=== PATIENT | female | born 1935 | race Caucasian/White ===

== ENCOUNTER 2017-01-08 20:12 | Emergency (ER) | payer MEDICARE ==
[2015-12-04 10:52] VITALS: BMI 25.6
[~2017-01-08 20:12] MED LIST: CALCIUM PO; COUMADIN6 MG PO; FOLIC ACID PO; HCTZ25 MG PO; K-DUR20 MEQ PO; MAGNESIUM PO; METOPROLOL TART50 MG PO; NORVASC10 MG PO; POTASSIUM PO; SYNTHROID25 MCG PO; THIAMINE HCL50 MG PO; TOPROL XL50 MG PO; VITAMIN B-12 PO; VITAMIN D3 PO; WARFARIN PO; ZOCOR20 MG PO
[2017-01-08 20:58] LABS: BASOPHILS 0.4 % (0-2); EOSINOPHILS 1.2 % (0-7); HEMATOCRIT 36.5 % (36.0-48.0); HEMOGLOBIN 12.2 g/dL (12-16); IMMATURE GRANULOCYTES 0.2 % (0-5); LYMPHOCYTES 11.9 % (15-50); MCH 30.8 pg (26.0-34.0); MCHC 33.4 g/dL (31.0-37.0); MCV 92.2 fL (80.0-100.0); MEAN PLATELET VOLUME 10.1 fL (7.4-10.4); MONOCYTES 15.1 % (2-11); NEUTROPHILS 71.2 % (40-80); RBC 3.96 10x6/uL (4.00-5.40); RDW 13.6 % (11.5-14.5); WBC 5.7 10x3/uL (4.8-10.8)
[2017-01-08 21:03] LABS: PLATELET COUNT 163 10x3/uL (130-400)
[2017-01-08 21:12] LABS: APPEARANCE SLT CLOUDY (CLEAR); BILIRUBIN NEGATIVE (NEGATIVE); COLOR YELLOW (YELLOW); GLUCOSE NEGATIVE (NEGATIVE); KETONE NEGATIVE (NEGATIVE); LEUKOCYTE ESTERASE 1+ (NEGATIVE); NITRITE NEGATIVE (NEGATIVE); PROTEIN NEGATIVE (NEGATIVE); UROBILINOGEN NORMAL (NORMAL)
[2017-01-08 21:13] LABS: ALBUMIN 3.8 g/dL (3.4-5.0); ANION GAP 7.8 mmol/L (8-16); BILIRUBIN - TOTAL 0.37 mg/dL (0.2-1.3); CALCIUM 9.2 mg/dL (8.5-10.1); CARBON DIOXIDE 29.5 mmol/L (21.0-32.0); POTASSIUM - SERUM 3.3 mmol/L (3.5-5.1); PROTEIN - SERUM 7.8 g/dL (6.4-8.2)
[2017-01-08 21:15] LABS: WHITE CELLS - URINE OCC /hpf (0-5)
== END 2017-01-09 00:24 | disposition home or self-care (01) ==
LOC: D.ER 20:12
PROVIDERS: Emergency Medicine
DX: R10.9 Unspecified abdominal pain (principal)

== ENCOUNTER 2020-02-09 13:09 | Inpatient (IN) | payer OTHER ==
[~2020-02-09] VITALS: Ht 147.3 cm; Wt 42.3 kg
[2020-02-09 14:29] VITALS: BP 106/75
[2020-02-09 14:41] LABS: HEMATOCRIT 37.8 % (36.0-48.0); HEMOGLOBIN 12.8 g/dL (12-16); MCH 26.8 pg (26.0-34.0); MCHC 33.9 g/dL (31.0-37.0); MCV 79.2 fL (80.0-100.0); MEAN PLATELET VOLUME 9.7 fL (7.4-10.4); PLATELET COUNT 553 10x3/uL (130-400); RBC 4.77 10x6/uL (4.00-5.40); WBC 28.7 10x3/uL (4.8-10.8)
[2020-02-09 14:49] LABS: APTT 89.7 SECONDS (22.8-39.4)
[2020-02-09 14:55] LABS: INR 5.49 (0.85-1.17); PROTIME 48.8 SECONDS (11.6-15.0)
[2020-02-09 15:05] LABS: ALBUMIN 2.1 g/dL (3.4-5.0); ALKALINE PHOSPHATASE 137 U/L (30-120); ALT (SGPT) 27 U/L (10-68); AMYLASE - SERUM 41 U/L (25-115); BILIRUBIN - TOTAL 0.55 mg/dL (0.2-1.3); CALC OSMOLALITY 262 mosm/kg (275-300); CALCIUM 9.1 mg/dL (8.5-10.1); CARBON DIOXIDE 22.3 mmol/L (21.0-32.0); CKMB 1.4 U/L (0.0-3.6); CREATINE KINASE 30 UL (21-215); CREATININE - SERUM 1.7 mg/dL (0.6-1.3); GLUCOSE 98 mg/dL (74-106); LIPASE 83 U/L (73-393); POTASSIUM - SERUM 4.4 mmol/L (3.5-5.1); PROTEIN - SERUM 7.7 g/dL (6.4-8.2); SODIUM 123 mmol/L (136-145); THYROID STIMULATING HORMONE 3.21 uIU/mL (0.36-3.74); UREA NITROGEN 54 mg/dL (7-18); eGFR NON AFRICAN AMERICAN 30 mL/min (90-120)
[2020-02-09 15:12] LABS: TROPONIN-I < 0.017 ng/mL (0.000-0.060)
[2020-02-09 15:14] LABS: CHLORIDE - SERUM 85 mmol/L (98-107)
[2020-02-09 15:24] LABS: LYMPHOCYTES 3 % (15-50); MONOCYTES 2 % (2-11); NEUTROPHILS 94 % (40-80); PLATELET ESTIMATE INCREASED
[2020-02-09 15:42] LABS: BILIRUBIN NEGATIVE (NEGATIVE); KETONE NEGATIVE (NEGATIVE); NITRITE NEGATIVE (NEGATIVE); UROBILINOGEN NORMAL (NORMAL)
[2020-02-09 15:43] LABS: AMORPHOUS SEDIMENT <1+ /lpf (NONE SEEN); BACTERIA MANY /hpf (NONE SEEN); EPITHELIAL CELLS NSEEN /hpf (0-5)
[2020-02-09 17:55] VITALS: BP 93/57
--- NOTE | 2020-02-09 18:15 | NUR ---
REPORT CALLED TO LEODAN STARR LPN
--- NOTE | 2020-02-09 19:50 | NUR ---
PATIENT ARRIVED TO FLOOR VIA STRETCHER. TRANSFERED TO BED. ASSESSMENT PERFORMED.
[2020-02-09 20:12] VITALS: BP 97/68; BMI 19.4
[2020-02-09 21:03] VITALS: Ht 147.3 cm; Wt 42.3 kg
[2020-02-10] VITALS: BP 95/61
--- NOTE | 2020-02-10 03:38 | NUR ---
UNABLE TO SLEEP THIS PM BUT REMAINS CALM. DENIES NEEDS. CALL LIGHT REMAINS CLOSE. CPOC.
[2020-02-10 04:00] VITALS: BP 96/59
[2020-02-10 07:19] LABS: ALBUMIN 1.6 g/dL (3.4-5.0); ANION GAP 13.8 mmol/L (8-16); BILIRUBIN - TOTAL 0.35 mg/dL (0.2-1.3); CARBON DIOXIDE 23.6 mmol/L (21.0-32.0)
[2020-02-10 07:20] LABS: CREATININE - SERUM 1.2 mg/dL (0.6-1.3); POTASSIUM - SERUM 3.4 mmol/L (3.5-5.1)
[2020-02-10 07:21] LABS: BASOPHILS 0.1 % (0-2); EOSINOPHILS 0.1 % (0-7); HEMATOCRIT 34.6 % (36.0-48.0); HEMOGLOBIN 11.3 g/dL (12-16); IMMATURE GRANULOCYTES 0.8 % (0-5); LYMPHOCYTES 2.4 % (15-50); MCHC 32.7 g/dL (31.0-37.0); MCV 79.7 fL (80.0-100.0); MEAN PLATELET VOLUME 9.3 fL (7.4-10.4); MONOCYTES 2.7 % (2-11); NEUTROPHILS 93.9 % (40-80); RBC 4.34 10x6/uL (4.00-5.40)
[2020-02-10 07:25] LABS: PLATELET COUNT 439 10x3/uL (130-400); WBC 19.9 10x3/uL (4.8-10.8)
--- NOTE | 2020-02-10 08:45 | NUR ---
RESTING IN BED, NO DISTRESS NOTED, C/O WEAKNESS, IV INFUSING, CONT TO MONITOR NPO
[2020-02-10 09:53] VITALS: BP 107/66
--- NOTE | 2020-02-10 12:18 | NUR ---
PT INCONT URINE, CONT TO MONITOR, REMAINS NPO
[2020-02-10 12:45] VITALS: BP 89/59
[2020-02-10 16:37] VITALS: BP 91/64
--- NOTE | 2020-02-10 18:00 | NUR ---
REMAINS NPO, NO C/O PAIN THIS SHIFT, CONT TO MONITOR
--- NOTE | 2020-02-10 21:00 | NUR ---
RESTING QUIETLY WITH NO COMPLALITNS VOICED. RELIEF WITH PAIN MED. IV TO RFA INTACT WITHOUT REDNESS OR EDEMA NOTED. CL IN REACH
[2020-02-10 23:03] VITALS: BP 116/66
--- NOTE | 2020-02-11 02:18 | NUR ---
I have reviewed this patient and I concur with the Shift Assessment completed by the Licensed Practical Nurse today this shift.
[2020-02-11 02:35] VITALS: BP 112/71
[2020-02-11 04:50] LABS: HEMATOCRIT 31.3 % (36.0-48.0); HEMOGLOBIN 10.3 g/dL (12-16); MCH 26.2 pg (26.0-34.0); MCHC 32.9 g/dL (31.0-37.0); MCV 79.6 fL (80.0-100.0); MEAN PLATELET VOLUME 9.2 fL (7.4-10.4); PLATELET COUNT 576 10x3/uL (130-400); RBC 3.93 10x6/uL (4.00-5.40); RDW 16.1 % (11.5-14.5); WBC 23.7 10x3/uL (4.8-10.8)
[2020-02-11 05:08] LABS: LYMPHOCYTES 2 % (15-50); MONOCYTES 2 % (2-11); NEUTROPHILS 96 % (40-80); PLATELET ESTIMATE INCREASED
[2020-02-11 05:26] LABS: ALBUMIN 1.7 g/dL (3.4-5.0); ANION GAP 16.3 mmol/L (8-16); BILIRUBIN - TOTAL 0.46 mg/dL (0.2-1.3); CALCIUM 8.2 mg/dL (8.5-10.1); CARBON DIOXIDE 20.7 mmol/L (21.0-32.0); CREATININE - SERUM 1.1 mg/dL (0.6-1.3); PROTEIN - SERUM 6.2 g/dL (6.4-8.2)
[2020-02-11 07:13] VITALS: BP 105/74
[2020-02-11 09:31] VITALS: BP 113/77
[2020-02-11 12:34] VITALS: BP 105/71
--- NOTE | 2020-02-11 13:41 | MORECARE ---
CASE MANAGEMENT DISCHARGE SUMMARY PATIENT: XOCHITL ANGEL UNIT: [id number] ADM DATE: 02/09/20 AGE: 85 : 36 SEX: F ROOM/BED: D.2206 AUTHOR: COTY RUIZ PHYSICIAN: REFERRING PHYSICIAN: SAMIRA SMALLS MD DATE OF SERVICE: 02/11/20 Discharge Plan Patient Name: XOCHITL ANGEL Facility: [facility]:[place] : 1935 Planned Disposition: Anticipated Discharge Date: Discharge Date: Expected LOS: Initial Reviewer: [email or web address] Initial Review Date: 02/09/2020 Generated: 02/11/20 2:41 pm Comments DCP- Discharge Planning Updated by [email or web address]: Siria Lee on 02/11/20 12:[address] TRANSFER HAS STARTED TO GET PATIENT TO [facility] FOR HIGHER LEVEL OF CARE. I HAVE SPOKE TO SILVINO LACKEY. I SPOKE JOAN AWAD AT [facility] AND HAVE FAXED CLINICAL TO [phone] External Providers External Provider: [facility] Next Contact Date: Service Request Date: Service Type: Resolution: Reviewer: Comments: Patient Name: XOCHITL ANGEL Page [id number] at 1341 All edits/amendments must be made on the electronic document DICTATION DATE: 02/11/20 1341 LIEUTENANT COLONEL: JOEL 02/11/20 1341 RPT#: [id number] DC DATE: STATUS: ADM IN [place] [id number] [place] [address] END OF REPORT
[2020-02-11 14:34] LABS: INR 4.85 (0.85-1.17); PROTIME 44.3 SECONDS (11.6-15.0)
--- NOTE | 2020-02-11 14:53 | MORECARE ---
CASE MANAGEMENT DISCHARGE SUMMARY PATIENT: XOCHITL ANGEL UNIT: [id number] ADM DATE: 02/09/20 AGE: 85 : 36 SEX: F ROOM/BED: D.2206 AUTHOR: COTY RUIZ PHYSICIAN: REFERRING PHYSICIAN: SAMIRA TSE MD DATE OF SERVICE: 02/11/20 Discharge Plan Patient Name: XOCHITL ANGEL Facility: [facility]:[place] : 1935 Planned Disposition: Anticipated Discharge Date: Discharge Date: Expected LOS: Initial Reviewer: [email or web address] Initial Review Date: 02/09/2020 Generated: 02/11/20 3:53 pm Comments DCP- Discharge Planning Updated by [email or web address]: Sriia Lee on 02/11/20 1:[address] phone called received by dr tse and he has an accepting doctor and Dr Reyes at [facility] DCP- Discharge Planning Updated by [email or web address]: Siria Lee on 02/11/20 12:[address] TRANSFER HAS STARTED TO GET PATIENT TO [facility] FOR HIGHER LEVEL OF CARE. I HAVE SPOKE TO SILVINO LACKEY. I SPOKE JOAN AWAD AT [facility] AND HAVE FAXED CLINICAL TO [phone] Last DP export: 02/11/20 12:41 p Patient Name: XOCHITL ANGEL Page [id number] at 1453 All edits/amendments must be made on the electronic document DICTATION DATE: 02/11/20 1453 INSTRUCTIONAL SERVICES LIBRARIAN: JOEL 02/11/20 1453 RPT#: [id number] DC DATE: STATUS: ADM IN [facility] [address] [place] [address] END OF REPORT
[2020-02-11 17:59] VITALS: BP 108/68
[2020-02-11 20:00] VITALS: BP 98/63
--- NOTE | 2020-02-11 21:00 | NUR ---
A&O X 4. REPORTS ABDOMINAL SORENESS AND HEARTBURN/INDEGESTION. LORIN PAGED. CALLED ON ROOM PHONE PER REQUEST AND ICE CHIPS GIVEN, CTM.
--- NOTE | 2020-02-12 00:45 | NUR ---
RECEIVED CALL FROM [facility]ER C[facility], COVID 19 TEST NEEDED FOR TRANSFER. NONE IN CHART AND NOTED NOTED BY LAB. ORDERS ENTERED, PT INFORMED. WILL PASS IN REPORT. [facility] NOTIFIED OF DELAY.
[2020-02-12 04:00] VITALS: BP 100/58
[2020-02-12 07:06] LABS: BASOPHILS 0.1 % (0-2); EOSINOPHILS 0 % (0-7); HEMATOCRIT 26.8 % (36.0-48.0); HEMOGLOBIN 8.9 g/dL (12-16); IMMATURE GRANULOCYTES 2.2 % (0-5); LYMPHOCYTES 3.4 % (15-50); MCH 26.3 pg (26.0-34.0); MCHC 33.2 g/dL (31.0-37.0); MCV 79.3 fL (80.0-100.0); MEAN PLATELET VOLUME 8.7 fL (7.4-10.4); MONOCYTES 3.4 % (2-11); NEUTROPHILS 90.9 % (40-80); PLATELET COUNT 456 10x3/uL (130-400); RBC 3.38 10x6/uL (4.00-5.40); RDW 16.4 % (11.5-14.5); WBC 23.7 10x3/uL (4.8-10.8)
[2020-02-12 07:44] LABS: ANION GAP 14.3 mmol/L (8-16); CALCIUM 7.5 mg/dL (8.5-10.1); CARBON DIOXIDE 18.8 mmol/L (21.0-32.0); CREATININE - SERUM 0.9 mg/dL (0.6-1.3); POTASSIUM - SERUM 3.1 mmol/L (3.5-5.1)
--- NOTE | 2020-02-12 08:09 | MORECARE ---
CASE MANAGEMENT DISCHARGE SUMMARY PATIENT: XOCHITL ANGEL UNIT: [id number] ADM DATE: 02/09/20 AGE: 85 : 36 SEX: F ROOM/BED: D.2206 AUTHOR: COTY RUIZ PHYSICIAN: REFERRING PHYSICIAN: SAMIRA TSE MD DATE OF SERVICE: 02/12/20 Discharge Plan Patient Name: XOCHITL ANGEL Facility: [facility]:[place] : 1935 Planned Disposition: Anticipated Discharge Date: Discharge Date: 02/12/2020 Expected LOS: Initial Reviewer: [email or web address] Initial Review Date: 02/09/2020 Generated: 02/12/20 9:08 am Comments DCP- Discharge Planning Updated by [email or web address]: Siria Lee on 02/11/20 1:[address] phone called received by dr tse and he has an accepting doctor and Dr Reyes at [facility] DCP- Discharge Planning Updated by [id number]: Siria Lee on 02/11/20 12:[address] TRANSFER HAS STARTED TO GET PATIENT TO [facility] FOR HIGHER LEVEL OF CARE. I HAVE SPOKE TO SILVINO LACKEY. I SPOKE JOAN AWAD AT [facility] AND HAVE FAXED CLINICAL TO [phone] Last DP export: 02/11/20 1:53 p Patient Name: XOCHITL ANGEL Page [id number] at 0809 All edits/amendments must be made on the electronic document DICTATION DATE: 02/12/20807 DIAGNOSTICS TECH: DM 02/12/20807 RPT#: [id number] DC DATE:02/12/20 STATUS: DIS IN [facility] [address] [facility] [place] [address] END OF REPORT
[2020-02-12 17:09] LABS: CEA 4.3 ng/mL (0.0-4.7)
[2020-02-13 14:10] LABS: CA 19-9 <2 U/mL (0-35)
== END 2020-02-12 07:23 | disposition short-term general hospital (02) | DRG 392 ==
LOC: D.ER 13:09 → D.MS 16:15 → D.M2 16:15 → D.MS 18:02
PROVIDERS: Emergency Medicine; Family Medicine; ADMIT Family Medicine; ATTEND Family Medicine
DX: R19.00 Intra-abdominal and pelvic swelling, mass and lump, unspecified site (principal); E87.1 Hypo-osmolality and hyponatremia; K56.609 Unspecified intestinal obstruction, unspecified as to partial versus complete obstruction; N13.30 Unspecified hydronephrosis; D47.3 Essential (hemorrhagic) thrombocythemia; I10 Essential (primary) hypertension; D64.9 Anemia, unspecified